=== PATIENT | male | born 1975 | race Caucasian/White ===

== ENCOUNTER 2021-02-08 08:25 | Observation (INO) ==
[2021-02-08] MEDS ORDERED: IOPAMIDOL 100 ML BOTTLE IV ONE (08:26)
--- NOTE | 2021-02-08 08:37 | Emergency Department Note ---
Neuro HPI General Chief Complaint: Stroke Symptoms Stated Complaint: Stroke symptoms Time Seen by Provider: 02/08/21 08:30 Source: EMS Mode of arrival: EMS Limitations: no limitations History of Present Illness HPI Narrative: Patient is a 45-year-old gentleman who arrives the emergency department by ambulance complaining of strokelike symptoms. History is provided by the patient. He says he awoke this morning in his usual state of health and started carrying a propane tank out to his car when he had sudden onset of weakness in his right upper and lower extremity and difficulty walking because of this. He called 911 and was transported to the hospital. The onset of his symptoms was at 730 this morning. He has never had anything like this before. Nothing seems to make the symptoms any better or worse. He denies any associated headache. The symptoms are constantly present. On Anticoagulants: No Related Data Home Medications Medication Instructions Recorded Confirmed No Known Home Meds 02/08/21 02/08/21 Allergies Allergy/AdvReac Type Severity Reaction Status Date / Time Methylphenidate Allergy Unknown Bone Verified 02/08/21 08:25 [From Ritalin] problem Review of Systems ROS ROS Narrative: Narrative: All systems ED: reviewed and negative except as stated. Constitutional: Denies fever or chills Respiratory: Reports cough; Denies shortness of breath Gastrointestinal: Denies abdominal pain, nausea or vomiting PFSH Narrative Patient History Narrative: Narrative: Medical/Surgical/Family History All Active Problems Brain TIA (Acute) Acute URI (Acute) Anemia (Chronic) Insomnia (Chronic) Fatigue (Chronic) Arthritis (Chronic) Depression (Chronic) ADHD (attention deficit hyperactivity disorder) (Chronic) History of tobacco use (Chronic) Medical History (Updated 02/08/21 @ 10:22 by Mohsen Mosley DO) ADHD (attention deficit hyperactivity disorder) Anemia Arthritis Depression Fatigue Gallbladder problem 2011 History of tobacco use Insomnia Surgical History H/O vasectomy 2004 S/P nasal surgery 1993 Family History Mother Diabetes mellitus due to weight Disorder of thyroid Grandfather Myocardial Infarction Social History Smoking Status: Current every day smoker Alcohol Intake Frequency: 0-2 drinks per day Substance Use: does not use Exam Narrative Narrative: I reviewed the vital signs. Gen -patient is awake and alert and in no acute distress. The patient is well groomed. HEENT -head is atraumatic. There is no conjunctival pallor or scleral icterus. Mucous membranes are moist. CV -S1-S2 regular rate and rhythm. Resp -breathing is nonlabored. Lungs are clear to auscultation bilaterally. There is no cyanosis. Derm -skin is warm and dry. MSK -present extremities are atraumatic. Psych -patient has appropriate affect. Neuro -patient answers questions appropriately and is oriented to person, place, time and situation. There is no dysarthria or aphasia. Facial sensation is symmetric. There is subtle flattening of the left nasolabial fold extraocular motion is intact. Tongue protrudes in the midline. Palate elevates symmetri mei. Shoulder shrug is symmetric. Muscle strength is subtly decreased in the right upper and lower extremity but technically 5 out of 5 in all 4 extremities. Peripheral sensation is diminished to light touch in the right upper and lower extremities. There is no [id number]-[id number] abnormality. There is no pyswuy-jr-qrbn abnormality. Visual mccabe are intact to confrontation. NIH stroke scale is 2. General Limitations: no limitations Course Vital Signs Vital signs: Vital Signs Temperature 97.9 F 02/08/21 08:25 Pulse Rate 95 H 02/08/21 08:25 Respiratory Rate 16 02/08/21 08:25 Blood Pressure 155/107 02/08/21 08:25 Pulse Oximetry (%) 98 02/08/21 08:25 Temperature 97.9 F 02/08/21 08:25 Pulse Rate 86 02/08/21 09:45 Respiratory Rate 19 02/08/21 09:45 Blood Pressure 145/93 02/08/21 09:45 Pulse Oximetry (%) 97 02/08/21 09:45 [facility] Narrative Medical decision making narrative: Patient presents with strokelike symptoms. Noncontrast head CT does not show any signs of intracranial hemorrhage. Although his NIH stroke scale is low the pattern did suggest an MCA distribution so I also obtained a CT angiogram of the head and neck which does not show any large vessel occlusion. On reevaluation, the patient notes improved motor strength in his right upper and lower extremity and has appreciably improved strength in these areas. Given the minor nondisabling nature of his symptoms he is not a candidate for IV thrombolytics and he does not have a large vessel occlusion that would be amenable to endovascular therapy. I discussed his history examination and diagnostic findings as well as his clinical course with Dr. Funmi Villa from the telestroke team. She agrees that he is not a candidate for thrombolytics retrovascular therapy and would benefit from dual antiplatelet therapy for 21 days and admission for further evaluation for modifiable stroke risk factors. Patient is agreeable with the plan. I discussed the patient's history examination and diagnostic findings with Dr. Woody, who agrees with the plan of care and accepts admission. Critical care time I provided 32 minutes of critical care time. This was in addition to any separately billable procedures. The patient was evaluated for new onset neurologic symptoms concerning for stroke or intracranial hemorrhage. He was evaluated as a possible candidate for IV thrombolytics or endovascular therapy. His symptoms were closely monitored to assess for any evolution or sudden worsening of his symptoms and need for reimaging. The patient was closely monitored for response to treatment and stability of vital signs throughout their emergency department stay. Lab Data Result diagrams: 02/08/21 09:00 02/08/21 09:00 Labs: Lab Results 02/08/21 02/08/21 02/08/21 Range/Units 09:00 09:00 09:00 WBC (4.5-11.0) K/mcL RBC (4.63-6.08) M/mcL Hgb (13.7-17.5) g/dL Hct (40.1-51.0) % POC Hct 39 L (41-55) % MCV (80.0-100.0) fL MCH (26.0-34.0) pg MCHC (31.0-36.0) g/dL RDW (11.5-14.5) % Plt Count (140-440) K/mcL MPV (7.4-10.4) fL Neut % (Auto) (38.0-78.0) % Lymph % (Auto) (15.5-49.0) % [place] % (Auto) (1.0-12.0) % Eos % (Auto) (0.0-7.0) % Baso % (Auto) (0.0-2.0) % Lymph # (Auto) (1.50-4.80) K/mcL [place] # (Auto) (0.10-0.90) K/mcL Eos # (Auto) (0.00-0.70) K/mcL Baso # (Auto) (0.00-0.30) K/mcL Absolute Neutrophils (1.80-8.00) K/mcL POC PT 13.0 (11.9-14.5) sec POC INR 1.1 (0.8-1.2) POC Sodium 140 (133-145) mEq/L POC Potassium 4.3 (3.3-5.1) mEql/L POC Chloride 103 (96-108) mEq/L POC Total CO2 24 (22-30) mmol/L POC BUN 23 H (6-20) mg/dL POC Creatinine 1.0 (0.6-1.2) mg/dL POC Glucose 111 H (70-105) mg/dL POC WB Ioniz Calcium 1.21 (1.16-1.32) mmEq/L Troponin T < 0.01 (<0.03) ng/mL 02/08/21 Range/Units 09:00 WBC 4.9 (4.5-11.0) K/mcL RBC 4.72 (4.63-6.08) M/mcL Hgb 14.4 (13.7-17.5) g/dL Hct 39.6 L (40.1-51.0) % POC Hct (41-55) % MCV 83.9 (80.0-100.0) fL MCH 30.5 (26.0-34.0) pg MCHC 36.4 H (31.0-36.0) g/dL RDW 11.9 (11.5-14.5) % Plt Count 206 (140-440) K/mcL MPV 8.9 (7.4-10.4) fL Neut % (Auto) 50.5 (38.0-78.0) % Lymph % (Auto) 33.8 (15.5-49.0) % [place] % (Auto) 10.2 (1.0-12.0) % Eos % (Auto) 4.9 (0.0-7.0) % Baso % (Auto) 0.6 (0.0-2.0) % Lymph # (Auto) 1.65 (1.50-4.80) K/mcL [place] # (Auto) 0.50 (0.10-0.90) K/mcL Eos # (Auto) 0.24 (0.00-0.70) K/mcL Baso # (Auto) 0.03 (0.00-0.30) K/mcL Absolute Neutrophils 2.46 (1.80-8.00) K/mcL POC PT (11.9-14.5) sec POC INR (0.8-1.2) POC Sodium (133-145) mEq/L POC Potassium (3.3-5.1) mEql/L POC Chloride (96-108) mEq/L POC Total CO2 (22-30) mmol/L POC BUN (6-20) mg/dL POC Creatinine (0.6-1.2) mg/dL POC Glucose (70-105) mg/dL POC WB Ioniz Calcium (1.16-1.32) mmEq/L Troponin T (<0.03) ng/mL ED POC Tests ED POC Tests: ANABELLA - SARS Antigen Negative EKG Data EKG #1: EKG attestation: Yes I reviewed and interpreted this EKG. EKG results narrative: EKG performed at 8:53 AM: Sinus rhythm, rate 87. Normal P wave QRS and T wave morphology. There is subtle concave upward ST elevation in the precordial leads consistent with early repolarization. Normal [place] QRS and QTc duration. No old EKG immediately available for comparison. EKG was interpreted by me. Discharge Plan Patient/Caregiver Discharge Instructions Pt seen by TIRE ADJUSTER/PA only: No Clinical Impression: Brain TIA Patient Disposition: Xfer As Inpt ([facility]) Condition: Good Follow up with: Bryan Bingham MD [Primary Care Provider] - Prescriptions: No Action No Known Home Meds 0RF
--- NOTE | 2021-02-08 08:49 | Cat Scan Report ---
CLINICAL INFORMATION: Code stroke COMPARISON: None. TECHNIQUE: 2.5 mm helical slices were obtained in the skull base to vertex. Following reconstruction, axial reformatted images were reviewed at bone and parenchymal windows. The exam was performed using radiation dose optimization techniques including, but not limited to, automated exposure control, adjustment of the mA and/or kV according to patient size and use of iterative reconstruction technique. FINDINGS: The ventricles, sulci, fissures, and cisterns are normal in size and configuration. No extra-axial fluid collections are identified. The cerebrum, brainstem and cerebellum are unremarkable. There is no evidence of hemorrhage, mass effect, or edema. Bone windows show no osseous abnormality. IMPRESSION: No intracerebral abnormality. 6 mm soft tissue mass in the lateral right mesotympanium which could indicate a focal scarring from prior otitis media or a cholesteatoma. Please correlate with right-sided conductive hearing loss and physical exam findings Interpreted and Authenticated by: Braden Austin 02/08/21
--- NOTE | 2021-02-08 09:05 | Cat Scan Report ---
CLINICAL INFORMATION: Code stroke COMPARISON: None. TECHNIQUE: 80 cc of Isovue-370 were injected intravenously , and using SmartPrep to maximize cerebral arterial opacification, 0.625 mm helical slices were obtained from the skull base through the cerebral vertex. Following reconstruction , sagittal, coronal and axial reformatted images were processed and reviewed at multiple windows and levels. 3D volume rendered and MIP images were acquired at a independent workstation. The exam was performed using radiation dose optimization techniques including, but not limited to, automated exposure control, adjustment of the mA and/or kV according to patient size and use of iterative reconstruction technique. FINDINGS: The intracranial internal carotid, vertebral, basilar, anterior, middle and posterior cerebral arteries and their branches are well-opacified and normal in contour and caliber without significant stenosis, occlusion or other pathology. Superficial/deep cerebral veins and deep venous sinuses are widely patent IMPRESSION: Normal exam Interpreted and Authenticated by: Braden Austin 02/08/21
--- NOTE | 2021-02-08 09:08 | Cat Scan Report ---
CLINICAL INFORMATION: Code stroke COMPARISON: None. TECHNIQUE: 80 cc of Isovue-300 were injected intravenously followed by 40 cc of normal saline flush. Using SmartPrep, 0.625 helical slices were obtained from the thoracic aortic arch through the [place]. Following reconstruction, 2.5 mm sagittal, coronal and axial reformatted images were processed. MIPS , 3-D volume rendering and CPR images were also constructed. The exam was performed using radiation dose optimization techniques including, but not limited to, automated exposure control, adjustment of the mA and/or kV according to patient size and use of iterative reconstruction technique. FINDINGS: The thoracic aortic arch is normal diameter with minimal intimal thickening and conventional aortic branching. The brachiocephalic, both subclavian, both common, internal and external carotid and both vertebral arteries are widely patent without significant abnormality. No soft tissue abnormality. IMPRESSION: Normal exam Interpreted and Authenticated by: Braden Austin 02/08/21
[2021-02-08 09:14] LABS: POC Blood Urea Nitrogen 23 mg/dL (6-20); POC CO2 24 mmol/L (22-30); POC Calcium, Ionized 1.21 mmEq/L (1.16-1.32); POC Chloride 103 mEq/L (96-108); POC Glucose, Random 111 mg/dL (70-105); POC Hematocrit 39 % (41-55); POC INR 1.1 (0.8-1.2); POC Potassium 4.3 mEql/L (3.3-5.1); POC Sodium 140 mEq/L (133-145)
[2021-02-08] MEDS ORDERED: CLOPIDOGREL 300 MG TABLET PO ONE (09:18)
[2021-02-08] MEDS ORDERED: ASPIRIN 325 MG ENTERIC COATED TABLET PO ONE (09:18)
[2021-02-08 10:05] LABS: Basophils # (Auto) 0.03 K/mcL (0.00-0.30); Basophils % (Auto) 0.6 % (0.0-2.0); Eosinophils # (Auto) 0.24 K/mcL (0.00-0.70); Eosinophils % (Auto) 4.9 % (0.0-7.0); Hematocrit 39.6 % (40.1-51.0); Hemoglobin 14.4 g/dL (13.7-17.5); Lymphocytes # (Auto) 1.65 K/mcL (1.50-4.80); Lymphocytes % (Auto) 33.8 % (15.5-49.0); Mean Cell Volume 83.9 fL (80.0-100.0); Mean Corpuscular HGB Conc 36.4 g/dL (31.0-36.0); Mean Platelet Volume 8.9 fL (7.4-10.4); Monocytes % (Auto) 10.2 % (1.0-12.0); Neutrophils % (Auto) 50.5 % (38.0-78.0); Platelet Count 206 K/mcL (140-440); RBC 4.72 M/mcL (4.63-6.08); Red Cell Distribution Width 11.9 % (11.5-14.5); WBC 4.9 K/mcL (4.5-11.0)
[2021-02-08 10:21] LABS: ALT/SGPT 19 U/L (<40); AST/SGOT 16 U/L (<40); Albumin/Globulin Ratio 1.7 (1.0-2.3); Alkaline Phosphatase 58 U/L (39-117); Bilirubin,Total 0.5 mg/dL (0.1-1.0); Blood Urea Nitrogen 21 mg/dL (6-20); Calcium 8.4 mg/dL (8.6-10.4); Carbon Dioxide 24 mmol/L (22-30); Chloride 102 mmol/L (96-108); Globulin 2.3 gm/dL (2.2-3.7); Glomerular Filtration Rate 90; Glucose 110 mg/dL (70-105)
[2021-02-08 10:30] LABS: Partial Thromboplastin Time 28.5 sec (20.0-37.0)
[2021-02-08 10:31] LABS: INR 0.9 (0.9-1.1); Prothrombin Time 13.1 sec (11.9-14.5)
--- NOTE | 2021-02-08 10:57 | Internal Med History&Physical ---
HPI History of Present Illness Patient information: Note initiated : 02/08/21 at 10:56 am Service Date, if different from initiated Date: [] Patient: Florencio Heller 45 y/o M admitted on for Stroke symptoms. Chief Complaint: [] Chief complaint: numbness and weakness of right upper and lower extremities. History of present illness: Mr. Heller is a 45 year old M no prior medical history, presents with numbness and weakness of right upper and lower extremities. There was no prior similar episode. This morning at 0730 after he moved propane [employer] for his trailer house, he experienced acute onset numbness and weakness of his right upper and lower extremities. The weakness was so severe that he had to drag his foot on the ground, and also he seemed to have no control of his rigth arm, and he could barely lift it up against gravity. He also complaining of numbness and tingling sensation of his right upper and lower extremities. He denies any headache or confusion or lethargy. Denies any visual or auditory changes. Denies any nausea or vomiting. Denies any shortness of breath, or chest pain or palpitation. Vital signs at ED presentations were all within normal limits. Labs also all within normal limits. Head CT w/o contrast showed 6mm soft tissue mass in the lateral right mesotympanium which could indicate a focal scarring from prior otitis media or a cholesteatoma. CT angiogram head and neck showed no abnormalities. Constitutional Constitutional: Absent chills, excessive sweating, fatigue, fever(s) or weakness EENT Eyes: Absent blurry vision, change in vision, loss of vision or other visual disturbances Ears: Absent decreased hearing or tinnitus Nose, mouth and throat: Absent abnormal hearing, dry mouth, headache(s), nasal congestion or sore throat Cardiovascular Cardiovascular: Absent chest pain, chest pain at rest, edema, irregular heart rhythm or palpatations Respiratory Respiratory: Absent cough, dyspnea or wheezing Gastrointestinal Gastrointestinal: Absent abdominal pain, constipation, diarrhea, nausea or vomiting Musculoskeletal Musculoskeletal: Present muscle weakness, numbness and tingling; Absent back pain, deformity, limited range of motion or muscle cramps Integumentary Integumentary: Absent lesions, rash or wounds Neurological Neurological: Present focal weakness, numbness and tingling; Absent headache(s) Psychiatric Psychiatric: Absent anxiety, depression or hallucinations PFSH PFSH All Active Problems Stroke with right hemiparesis (Acute) Brain TIA (Acute) Acute URI (Acute) Anemia (Chronic) Insomnia (Chronic) Fatigue (Chronic) Arthritis (Chronic) Depression (Chronic) ADHD (attention deficit hyperactivity disorder) (Chronic) History of tobacco use (Chronic) Medical History (Updated 02/08/21 @ 11:08 by Marco Antonio Woody MD) ADHD (attention deficit hyperactivity disorder) Anemia Arthritis Depression Fatigue Gallbladder problem 2011 History of tobacco use Insomnia Surgical History H/O vasectomy 2004 S/P nasal surgery 1993 Family History Mother Diabetes mellitus due to weight Disorder of thyroid Grandfather Myocardial Infarction Social History marital status: education level: college occupational status: employed occupation: [employer] alcohol intake frequency: 0-2 drinks per day substance use type: does not use MEDS/ALLERGIES Home Medications and Allergies Home Medications Medication Instructions Recorded Confirmed Type No Known Home Meds 02/08/21 02/08/21 History Allergies Allergy/AdvReac Type Severity Reaction Status Date / Time Methylphenidate Allergy Unknown Bone Verified 02/08/21 08:25 [From Ritalin] problem EXAM Constitutional Vitals: Temp Pulse Resp BP Pulse Ox 36.6 C 90 20 138/90 93 02/08/21 08:25 02/08/21 10:30 02/08/21 10:30 02/08/21 10:30 02/08/21 10:30 General appearance: cooperative and no acute distress Head Head exam: Present atraumatic and normocephalic Eye Eye exam: Present EOMI and PERRL ENT ENT exam: Present mucous membranes moist, normal exam and normal external ear exam Neck Neck exam: Present normal inspection; Absent lymphadenopathy, tenderness or thyromegaly Respiratory Respiratory exam: Absent accessory muscle use, respiratory distress or wheezes Cardiovascular Cardiovascular exam: Present normal rate and rhythm; Absent JVD GI/Abdominal GI/Abdominal exam: Present normal bowel sounds and soft; Absent organomegaly or tenderness Rectal Rectal exam: Present deferred Extremities Exam Extremities exam: Present full ROM, normal capillary refill and normal inspection; Absent tenderness Neurological Exam Neurological exam: Present alert, CN II-XII intact, motor sensory deficit and oriented X3 Additional comments: Light touch sensation reduced of the right leg up to knee Motor strength 4+/5 of right lower extremity. Psychiatric Psychiatric exam: Present normal affect and normal mood; Absent anxious or depressed Skin Skin exam: Present dry and intact DATA Data Completed and Pending Labs: Labs from last 24 hours 02/08/21 02/08/21 02/08/21 09:50 09:00 09:00 WBC 4.9 RBC 4.72 Hgb 14.4 Hct 39.6 L POC Hct MCV 83.9 MCH 30.5 MCHC 36.4 H RDW 11.9 Plt Count 206 MPV 8.9 Neut % (Auto) 50.5 Lymph % (Auto) 33.8 [place] % (Auto) 10.2 Eos % (Auto) 4.9 Baso % (Auto) 0.6 Lymph # (Auto) 1.65 [place] # (Auto) 0.50 Eos # (Auto) 0.24 Baso # (Auto) 0.03 Absolute Neutrophils 2.46 POC PT PT POC INR INR APTT POC Sodium Sodium POC Potassium Potassium POC Chloride Chloride Carbon Dioxide POC Total CO2 Anion Gap POC BUN BUN Creatinine POC Creatinine GFR Calculation Glucose POC Glucose Calcium POC WB Ioniz Calcium Total Bilirubin AST ALT Alkaline Phosphatase Troponin T < 0.01 Total Protein Albumin Globulin Albumin/Globulin Ratio Urine Color Pending Urine Appearance Pending Urine pH Pending Ur Specific [place] Pending Urine Protein Pending Urine Glucose (UA) Pending Urine Ketones Pending Urine Occult Blood Pending Urine Nitrate Pending Urine Bilirubin Pending Urine Urobilinogen Pending Ur Leukocyte Esterase Pending 02/08/21 02/08/21 09:00 09:00 WBC RBC Hgb Hct POC Hct 39 L MCV MCH MCHC RDW Plt Count MPV Neut % (Auto) Lymph % (Auto) [place] % (Auto) Eos % (Auto) Baso % (Auto) Lymph # (Auto) [place] # (Auto) Eos # (Auto) Baso # (Auto) Absolute Neutrophils POC PT 13.0 PT 13.1 POC INR 1.1 INR 0.9 APTT 28.5 POC Sodium 140 Sodium 135 POC Potassium 4.3 Potassium 4.3 POC Chloride 103 Chloride 102 Carbon Dioxide 24 POC Total CO2 24 Anion Gap 9.0 POC BUN 23 H BUN 21 H Creatinine 1.0 POC Creatinine 1.0 GFR Calculation 90 Glucose 110 H POC Glucose 111 H Calcium 8.4 L POC WB Ioniz Calcium 1.21 Total Bilirubin 0.5 AST 16 ALT 19 Alkaline Phosphatase 58 Troponin T Total Protein 6.3 Albumin 4.0 Globulin 2.3 Albumin/Globulin Ratio 1.7 Urine Color Urine Appearance Urine pH Ur Specific [place] Urine Protein Urine Glucose (UA) Urine Ketones Urine Occult Blood Urine Nitrate Urine Bilirubin Urine Urobilinogen Ur Leukocyte Esterase A/P Assessment and plan (1) Brain TIA: Status: Acute (2) Stroke with right hemiparesis: Status: Acute Narrative A/P Narrative: Assessment and Plans: 1. TIA/stroke with right hemiparesis: Inpatient PCU telemetry Neuro chek q4hr NIH stroke scoring qshift Repeat CT head w/o contrast on 02/09 2D echocardiogram Lipid panel HgA1c screening Aspirin Plavix Lipitor Physical therapy Occupational therapy GI ppx: not currently indicated DVT ppx: Lovenox Code status: Full Prognosis: guarded Disposition: inpatient PCU telemetry Time Spent With Patient Time: Total time spent is greater than 50% in coordination of care (as documented) at patient's floor/unit and/or counseling patient: Total time spent with greater than 50% in coordination of care (as documented) at patient's floor/unit and/or counseling patient:: Greater than 35 minutes QUALITY Stroke Symptom Onset Unknown: No
[2021-02-08 10:59] LABS: Appearance,Urine CLEAR (Clear); Bilirubin,Urine Negative (Negative); Color,Urine YELLOW; Culture Indicated,Urine No; Glucose,Urine (UA) Negative (Negative); Ketones,Urine Negative (Negative); Leukocyte Esterase,Urine Negative /uL (Negative); Nitrate,Urine Negative (Negative); Protein,Urine Negative (Negative); Specific Gravity,Urine 1.045 (1.000-1.035); Urine Blood Negative (Negative); Urobilinogen,Urine Negative
[2021-02-08] MEDS ORDERED: ACETAMINOPHEN 325 MG TABLET PO PRN (11:22)
[2021-02-08] MEDS ORDERED: LACTULOSE 20 GM/30 ML ORAL.SOL PO PRN (11:22)
[2021-02-08] MEDS ORDERED: ONDANSETRON 4 MG/2 ML VIAL IV PRN (11:22)
[2021-02-08] MEDS ORDERED: IPRATROPIUM/ALBUTEROL 3 ML AMPUL.NEB NEB PRN (11:22)
[2021-02-08] MEDS ORDERED: SENNOSIDES 1 TABLET PO PRN (11:22)
[2021-02-08] MEDS ORDERED: hydrALAZINE 20 MG/ML VIAL IV PRN (11:22)
[2021-02-08] MEDS: 0.9 % SODIUM CHLORIDE 10 ML SYRINGE IV SCH (12:53)
[2021-02-08] MEDS: ATORVASTATIN 40 MG TABLET PO SCH (12:53)
[2021-02-08 13:35] LABS: Hemoglobin A1C 5.5 % Hgb (4.0-6.0)
[2021-02-08] MEDS: DOCUSATE SODIUM 100 MG CAPSULE PO SCH (19:43)
[2021-02-09] MEDS: 0.9 % SODIUM CHLORIDE 10 ML SYRINGE IV SCH ×2 (01:17→05:19)
[2021-02-09] MEDS ORDERED: ASPIRIN 325 MG ENTERIC COATED TABLET PO SCH (09:00)
[2021-02-09] MEDS ORDERED: CLOPIDOGREL 75 MG TABLET PO SCH (09:00)
[2021-02-09] MEDS ORDERED: ENOXAPARIN 40 MG/0.4 ML SYRINGE SQ SCH (09:00)
[2021-02-09] MEDS: ATORVASTATIN 40 MG TABLET PO SCH (10:14)
[2021-02-09] MEDS: DOCUSATE SODIUM 100 MG CAPSULE PO SCH (10:14)
--- NOTE | 2021-02-09 10:21 | Magnetic Resonance Report ---
CLINICAL INFORMATION: Numbness and weakness right upper extremity. COMPARISON: None. TECHNIQUE:Sagittal T1 FLAIR, axial T2 FLAIR propeller, diffusion, ADC were acquired. FINDINGS: The ventricles, sulci, fissures and cisterns are normal in size configuration-no extra-axial fluid collection or mass appreciated. A 9 mm acute nonhemorrhagic lacunar infarct is seen in the posterior lentiform nucleus involving the posterior limb of the left internal capsule. This likely accounts for the patient's symptoms. In this region, there is restricted diffusion. The signal throughout the remainder of the cerebrum, brainstem and cerebellum is unremarkable. Signal void in intracerebral arteries is normal. IMPRESSION: 9 mm nonhemorrhagic acute lacunar infarct in the posterior lentiform nucleus involving the posterior limb of the left internal capsule. This would likely account for patient's symptoms. Interpreted and Authenticated by: Braden Austin 02/09/21
--- NOTE | 2021-02-09 10:43 | Discharge Summary ---
Discharge Provider Provider Patient information: Note initiated : 02/09/21 at 10:39 am Service Date, if different from initiated Date: [] Patient: Florencio Heller 45 y/o M admitted on 02/08/21 for Stroke symptoms. Chief Complaint: [] Date of admission: 02/08/21 11:15 Discharge date: 02/09/21 Primary care physician: Bryan Bingham MD Attending physician on admission: Marco Antonio Woody Consults: 02/08/21 Consult to Physician [CONS] Stat Comment: Consulting Provider: Marco Antonio Woody Reason For Exam: Physician to Consult Attending physician on discharge: Marco Antonio Woody Discharge Meds Discharge Medications Home Medications aspirin 81 mg chewable tablet 81 mg PO DAILY #30 tab 02/09/21 [Rx Last Taken Unknown] atorvastatin 40 mg tablet 40 mg PO DAILY #30 tab 02/09/21 [Rx Last Taken Unknown] clopidogrel 75 mg tablet 75 mg PO DAILY #30 tab 02/09/21 [Rx Last Taken Unknown] COURSE Hospital Course Hospital course: Mr. Heller is a 45 year old M no prior medical history, presents with numbness and weakness of right upper and lower extremities. There was no prior similar episode. This morning at 0730 after he moved [employer] for his trailer house, he experienced acute onset numbness and weakness of his right upper and lower extremities. The weakness was so severe that he had to drag his foot on the ground, and also he seemed to have no control of his rigth arm, and he could barely lift it up against gravity. He also complaining of numbness and tingling sensation of his right upper and lower extremities. He denies any headache or confusion or lethargy. Denies any visual or auditory changes. Denies any nausea or vomiting. Denies any shortness of breath, or chest pain or palpitation. Vital signs at ED presentations were all within normal limits. Labs also all within normal limits. Head CT w/o contrast showed 6mm soft tissue mass in the lateral right mesotympanium which could indicate a focal scarring from prior otitis media or a cholesteatoma. CT angiogram head and neck showed no abnormalities. 02/09: NIH score of 0 this morning. MRI brain stroke protocol showing 8mm acute nonhemorrhagic lacunar infarct in the left lentiform nucleus. Physical therapist recommended home discharge when medically cleared. Reached clinical stability. Rx Aspirin, Plavix, Lipitor sent to pharmacy. 1-2 week PCP follow up appointment set for him. All questions were answered prior to patient being physically discharged. Discharge diagnosis: acute nonhemorrhagic lacunar infarct in the left lentiform nucleus Time Spent with Patient Time attestation: Total time spent providing and/or coordinating discharge services: Time spent: Less than 30 minutes EXAM Constitutional Vitals: Temp Pulse Resp BP Pulse Ox 36.7 C 77 12 133/91 98 02/09/21 08:01 02/09/21 08:01 02/09/21 10:00 02/09/21 10:00 02/09/21 10:00 General appearance: cooperative and no acute distress Head Head exam: Present atraumatic and normocephalic Eye Eye exam: Present EOMI and PERRL ENT ENT exam: Present mucous membranes moist, normal exam and normal external ear exam Neck Neck exam: Present normal inspection; Absent lymphadenopathy, tenderness or thyromegaly Respiratory Respiratory exam: Absent accessory muscle use, respiratory distress or wheezes Cardiovascular Cardiovascular exam: Present normal rate and rhythm; Absent JVD GI/Abdominal GI/Abdominal exam: Present normal bowel sounds and soft; Absent organomegaly or tenderness Rectal Rectal exam: Present deferred Extremities Exam Extremities exam: Present full ROM, normal capillary refill and normal ins pection; Absent tenderness Neurological Exam Neurological exam: Present alert, CN II-XII intact and oriented X3; Absent motor sensory deficit Psychiatric Psychiatric exam: Present normal affect and normal mood; Absent anxious or depressed Skin Skin exam: Present dry and intact Discharge Data Data Completed and Pending Labs on day of discharge: Labs from last 24 hours 02/08/21 02/08/21 09:50 09:00 Hemoglobin A1c 5.5 Estim Average Glucose 111 Triglycerides 114 Cholesterol 243 H LDL Cholesterol, Calc 177 H Non-HDL Cholesterol 199 H HDL Cholesterol 44 Urine Color Yellow Urine Appearance Clear Urine pH 7.0 Ur Specific [place] 1.045 Urine Protein Negative Urine Glucose (UA) Negative Urine Ketones Negative Urine Occult Blood Negative Urine Nitrate Negative Urine Bilirubin Negative Urine Urobilinogen Negative Ur Leukocyte Esterase Negative Ur Culture Indicated? No Discharge Plan Patient/Caregiver Discharge Instructions Activity: increase activity as tolerated Diet: Regular Diet Instructions: Transient Ischemic Attack (DC), Return to Work Instructions (DC), Stroke (GEN) Activity Restrictions/Additional Instructions: Increase activity as tolerated. Continue with a regular diet. Call on Friday to schedule a follow up with your Primary Care Physician. Prescriptions: New aspirin 81 mg Tablet,Chewable 81 mg PO DAILY Qty: 30 0RF atorvastatin 40 mg Tablet 40 mg PO DAILY Qty: 30 0RF clopidogrel 75 mg Tablet 75 mg PO DAILY Qty: 30 0RF Follow Up Plan Follow up with: Bryan Bingham MD [Primary Care Provider] - (Please call on Friday to schedule a post hospital follow up appointment. The office is closed due to the holiday today.) Patient Disposition: Home, Self-Care Prognosis: Good Rehab Potential: Good I certify that the patient requires SNF services: No Overall status at discharge: patient is back to baseline Discharge Orders: Discharge Order (Routine); Ordered 02/09/21 Ordered By: Marco Antonio IZQUIERDO VTE Deep Vein Thrombosis/Pulmonary Embolism Present on Admission: No
[2021-02-09] MEDS ORDERED: ASPIRIN 81 MG TAB.CHEW PO SCH (11:00)
--- NOTE | 2021-02-12 07:18 | EKG ---
[facility] Test Date: 2021-02-08 Pat Name: Florencio Heller Department: ED Room: Gender: Male Doctor Of Medicine: DESTINY : 1975 Requested By: Mohsen Mosley Order Number: [id number] Reading MD: Braden Palma M.D. Measurements Intervals [place] Rate: 87 P: 57 MT: 118 QRS: 47 QRSD: 106 T: 10 QT: 355 QTc: 427 Interpretive Statements Sinus rhythm Borderline short MT interval Electronically Signed On 02-12-2021 7:18:04 PST by Braden Palma M.D. /[id number]
== END 2021-02-09 12:29 | disposition home or self-care (01) ==
LOC: ED 08:25 → ICU 11:15 → INTOOBSV 11:15
PROVIDERS: ADMIT Internal Medicine; ATTEND Internal Medicine